=== PATIENT | female | born 1950 | race Caucasian/White ===

== ENCOUNTER 2017-02-04 12:39 | Emergency (ER) | payer OTHER, BC ==
[~2017-02-04] VITALS: Ht 165.1 cm; Wt 110.4 kg
[~2017-02-04 12:39] MED LIST: BENICAR20 MG PO; TYLENOL REGULA325 MG PO
[2017-02-04 13:25] LABS: ADD MIUA? YES; BILIRUBIN NEGATIVE; BLOOD NEGATIVE; COLOR STRAW ((YELLOW)); GLUCOSE (STRIP) NEGATIVE; KETONES NEGATIVE; LEUKOCYTES LARGE; NITRITE NEGATIVE; PROTEIN (STRIP) NEGATIVE; SPECIFIC GRAVITY 1.009 (1.000-1.030); UROBILINOGEN 0.2 MG/DL (0.2-1.0)
[2017-02-04 13:28] LABS: BACTERIA NONE SEEN /HPF; EPITHELIAL CELLS 1+ /HPF; MUCUS TRACE /LPF; RED BLOOD CELLS 0-5 /HPF (0-5); UCUL ADDED? YES; WHITE BLOOD CELLS 20-30 /HPF (0-5)
[2017-02-04 13:32] LABS: HEMATOCRIT 40.5 % (36.0-46.0); MCH 28.6 PG (29.0-34.0); MCHC 32.6 G/DL (30.0-36.0); MCV 87.9 FL (83-99); MEAN PLAT.VOLUME 10.9 uM^3 (9.5-12.4); PLATELET COUNT 258 K/uL (156-360); RBC DIS.WIDTH-CV 13.7 % (11.8-14.6); RBC DIS.WIDTH-SD 43.8 % (39-53); RED BLOOD COUNT 4.61 M/uL (3.80-5.20); WHITE BLOOD COUNT 6.6 K/uL (4.1-10.2)
[2017-02-04 13:37] LABS: CHLORIDE 106 mEq/L (99-109); POTASSIUM 3.8 mEq/L (3.7-5.4); SODIUM 141 mEq/L (136-147)
[2017-02-04 13:39] LABS: GLUCOSE 96 mg/dL (70-99)
[2017-02-04 13:40] LABS: ANION GAP 9 MEQ/L (2-14)
[2017-02-04 13:41] LABS: TOTAL BILIRUBIN 0.3 mg/dL (0.0-1.0)
[2017-02-04 13:42] LABS: ALKALINE PHOSPHATASE 60 IU/L (3-129)
[2017-02-04 13:43] LABS: GFR ESTIMATE (CALCULATED) > 59 mL/min/
[2017-02-04 13:44] LABS: UREA NITROGEN (BUN) 15 mg/dL (9-23)
[2017-02-04] MEDS ORDERED: CIPRO500 MG PO (16:45)
[2017-02-04 17:15] VITALS: BP 138/89
== END 2017-02-04 17:20 | disposition home or self-care (01) ==
LOC: EME 12:39
DX: N39.0 Urinary tract infection, site not specified (principal); R10.32 Left lower quadrant pain; I10 Essential (primary) hypertension; J45.909 Unspecified asthma, uncomplicated; Z96.653 Presence of artificial knee joint, bilateral
CPT/HCPCS: 74176; 80053; 81003; 85027; 87086; 99281; 99283

== ENCOUNTER → 2017-08-15 | Outpatient (CLI) | payer MEDICARE, BC ==
[~2017-08-15] MED LIST changes: +CIPRO500 MG PO; +DAILY MULTIPLE1 EACH PO; +SYNTHROID50 MCG PO
== END | disposition home or self-care (01) ==
LOC: CDC 10:20
DX: Z01.810 Encounter for preprocedural cardiovascular examination (principal); R94.31 Abnormal electrocardiogram [ECG] [EKG]
CPT/HCPCS: 93000

== ENCOUNTER 2017-08-21 06:43 | Day surgery (SDC) | payer OTHER, BC ==
[~2017-08-21] VITALS: Ht 165.1 cm; Wt 106.1 kg
[2017-08-21 07:45] VITALS: BP 124/74
[2017-08-21 10:15] VITALS: BP 137/60
[2017-08-21 11:04] VITALS: BP 121/58
== END 2017-08-21 11:11 | disposition home or self-care (01) ==
LOC: SDC 06:43
DX: N84.0 Polyp of corpus uteri (principal); I10 Essential (primary) hypertension; E03.9 Hypothyroidism, unspecified; K21.9 Gastro-esophageal reflux disease without esophagitis; E66.9 Obesity, unspecified; Z68.38 Body mass index [BMI] 38.0-38.9, adult; Z80.3 Family history of malignant neoplasm of breast; Z80.49 Family history of malignant neoplasm of other genital organs; Z88.0 Allergy status to penicillin
CPT/HCPCS: 88305; J1100; J1885; J2405; J3010; Q0175